=== PATIENT | male | born 1950 | race Caucasian/White ===

== ENCOUNTER → 2020-10-27 | Outpatient (REF) | payer BC, MEDICARE | LOC: M LAB REF 18:59 | PROVIDERS: ATTEND Physician Assistant | DX: L82.1 Other seborrheic keratosis (principal) ==

== ENCOUNTER → 2021-10-29 | Outpatient (REF) | payer MEDICARE | LOC: M SFHCDERM 14:32 | PROVIDERS: ATTEND Physician Assistant | DX: D04.39 Carcinoma in situ of skin of other parts of face (principal); L57.8 Other skin changes due to chronic exposure to nonionizing radiation ==